=== PATIENT | female | born 1985 ===

== ENCOUNTER 2017-09-05 09:46 | Emergency (ER) | payer OTHER ==
[2017-09-05 09:53] VITALS: BP 145/79; PULSE 80; RESP 20; TEMP 98.2; O2SAT 100
--- NOTE | 2017-09-05 10:14 | C.PDOC ---
History Of Present Illness Pt c/o rash. Time Seen by Provider: 09/05/17 09:59 Chief Complaint (Nursing): Abnormal Skin Integrity History Per: Patient Onset/Duration Of Symptoms: Days (4) Current Symptoms Are (Timing): Still Present Location Of Injury: Right: Arm, Left: Arm, Anterior: Abdomen (lower) Quality Of Symptoms: Itching. denies: Draining Severity: Moderate Additional History Per: Prior Records Past Medical History Reviewed: Historical Data, Nursing Documentation, Vital Signs Vital Signs: Last Vital Signs Temp 98.2 F 09/05/17 09:51 Pulse 80 09/05/17 09:51 Resp 20 09/05/17 09:51 BP 145/79 09/05/17 09:51 Pulse Ox 100 09/05/17 09:51 - Medical History PMH: Diabetes (Gestational) - [facility] Procedures MONITORING NOS (10/01/12) REPAIR OB LACERATION NEC (10/03/12) SURG INDUCT LABOR NEC (10/03/12) Family History: States: Unknown Family Hx - Social History Hx Alcohol Use: No Hx Substance Use: No Review Of Systems Except As Marked, All Systems Reviewed And Found Negative. Constitutional: Negative for: Fever, Weakness ENT: Negative for: Mouth Pain, Mouth Swelling, Throat Pain, Throat Swelling Respiratory: Negative for: Shortness of Breath Gastrointestinal: Negative for: Vomiting Musculoskeletal: Negative for: Neck Pain Skin: Positive for: Rash Neurological: Negative for: Weakness, Numbness Physical Exam - Physical Exam Appears: Non-toxic, No Acute Distress Skin: Warm, Dry, Rash (erythematous patches on b/l upper arms and lower abdomen. ) Head: Atraumatic, Normacephalic Eye(s): bilateral: Normal Inspection, PERRL, EOMI Oral Mucosa: Moist, No Drooling, No Trismus Throat: Normal Neck: Normal ROM, Supple Lymphatic: No Adenopathy Cardiovascular: Rhythm Regular Respiratory: Normal Breath Sounds, No Accessory Muscle Use Gastrointestinal/Abdominal: Soft, No Tenderness Back: No CVA Tenderness Extremity: Normal ROM, No Pedal Edema, No Calf Tenderness, Other (No rash on palms or soles) Neurological/Psych: Oriented x3, Normal Speech, Normal Motor, Normal Sensation ED Course And Treatment O2 Sat by Pulse Oximetry: 100 Pulse Ox Interpretation: Normal Disposition Counseled Patient/Family Regarding: Diagnosis, Need For Followup, Rx Given - Disposition Referrals: at [facility] [Outside] Disposition: HOME/ ROUTINE Disposition Time: 10:14 Condition: STABLE Additional Instructions: Follow up in the clinic. Return to the ER if you develop fever, shortness of breath, mouth sores, throat swelling, worsening of symptoms or if you have any other concerns. Prescriptions: DiphenhydrAMINE [Benadryl] 25 mg PO Q4 PRN #30 cap PRN Reason: Allergy Symptoms Hydrocortisone 1% Cream [Cortizone 1% Cream] 1 appl TP BID #1 tube Instructions: Skin Rash (DC) Print Language: STATELESS - Clinical Impression Clinical Impression: Pruritic erythematous rash
== END 2017-09-05 10:28 | disposition home or self-care (01) ==
LOC: C.ER 09:46
DX: L53.9 Erythematous condition, unspecified (principal); R21 Rash and other nonspecific skin eruption

== ENCOUNTER 2017-11-26 12:48 | Emergency (ER) | payer OTHER ==
[2017-11-26 12:56] VITALS: TEMP 98.5
[2017-11-26 13:59] VITALS: BP 119/85; PULSE 73; RESP 16; O2SAT 98
--- NOTE | 2017-11-26 15:59 | C.PDOC ---
History Of Present Illness 32 year old female patient presents to the ER with c/o bilateral lower extremity pain below the knee. Patient states pain has been going on for more than a month. Patient notes she took and Advil x1 week ago which provided relief. Patient is able to ambulate. Patient denies leg numbness and recent trauma. Time Seen by Provider: 11/26/17 12:59 Chief Complaint (Nursing): Lower Extremity Problem/Injury History Per: Patient History/Exam Limitations: no limitations Onset/Duration Of Symptoms: Days (x1 month) Current Symptoms Are (Timing): Still Present Past Medical History Reviewed: Historical Data, Nursing Documentation, Vital Signs Vital Signs: Last Vital Signs Temp 98.5 F 11/26/17 12:55 Pulse 73 11/26/17 13:58 Resp 16 11/26/17 13:58 BP 119/85 11/26/17 13:58 Pulse Ox 98 11/26/17 16:07 - Medical History PMH: Diabetes (Gestational) - [facility] Procedures MONITORING NOS (10/01/12) REPAIR OB LACERATION NEC (10/03/12) SURG INDUCT LABOR NEC (10/03/12) Family History: States: Unknown Family Hx - Social History Hx Alcohol Use: No Hx Substance Use: No - Immunization History Hx Tetanus Toxoid Vaccination: No Hx Influenza Vaccination: No Hx Pneumococcal Vaccination: No Review Of Systems Except As Marked, All Systems Reviewed And Found Negative. Musculoskeletal: Positive for: Other (Bilateral lower extremity pain below the knee) Neurological: Negative for: Numbness (leg) Physical Exam - Physical Exam Appears: Well, Non-toxic, No Acute Distress Skin: Normal Color, Warm, Dry Head: Atraumatic, Normacephalic Neck: Normal ROM, Supple Chest: Symmetrical, No Deformity Cardiovascular: Rhythm Regular Respiratory: Normal Breath Sounds Extremity: Normal ROM (x4), No Tenderness, No Pedal Edema, No Calf Tenderness, Capillary Refill (<2 sec), No Deformity, No Swelling Extremity: Bilateral: Atraumatic Pulses: Left Dorsalis Pedis: Normal, Right Dorsalis Pedis: Normal Neurological/Psych: Oriented x3, Normal Speech, Normal Motor, Normal Sensation, Normal Reflexes Gait: Steady ED Course And Treatment O2 Sat by Pulse Oximetry: 98 (RA) Pulse Ox Interpretation: Normal Medical Decision Making Medical Decision Making: Impression: bilateral lower extremity pain below knee Plans: -- ibuprofen Reassess: Patient is resting comfortably. Tolerating PO. Patient states she feels better and is comfortable being discharged home. Patient is advised to f/ u with PCP in 1-2 days. Disposition - Disposition Referrals: [facility] [Outside] [facility] [Outside] Disposition: HOME/ ROUTINE Disposition Time: 13:30 Condition: GOOD Additional Instructions: SYLVESTER TIRADO, thank you for letting us take care of you today. Your provider was Mejia Gallardo DO and you were treated for LEG PAIN. The emergency medical care you received today was directed at your acute symptoms. If you were prescribed any medication, please fill it and take as directed. It may take several days for your symptoms to resolve. Return to the Emergency Department if your symptoms worsen, do not improve, or if you have any other problems. Please contact your doctor or call one of the physicians/clinics you have been referred to that are listed on the Patient Visit Information form that is included in your discharge packet. Bring any paperwork you were given at discharge with you along with any medications you are taking to your follow up visit. Our treatment cannot replace ongoing medical care by a primary care provider outside of the emergency department. Thank you for allowing the [facility] team to be part of your care today. Follow up with the clinic this week for outpatient care. SYLVESTER TIRADO, ary por dejarnos atenderlo hoy. Benoit proveedor fue Mejia Gallardo DO y usted recibi tratamiento para LEG DOLOR. La atencin mdica de emergencia que recibi hoy estaba dirigida a emiliana sntomas agudos. Si le prescribieron algn medicamento, llnelo y tome segn las indicaciones. Emiliana s ntomas pueden tardar varios gonzales en resolverse. Regrese al Departamento de Emergencia si emiliana sntomas empeoran, no mejoran o si tiene algn otro problema. Comunquese con benoit mdico o llame a pam de los mdicos / clnicas a los que llanos sido referido que figura en el formulario de Informacin de visita del paciente que se incluye en benoit paquete de stephen. Traiga todos los documentos que recibi al momento del stephen junto con los medicamentos que est tomando en benoit visita de seguimiento. Nuestro tratamiento no puede reemplazar la atencin mdica en curso por un proveedor de atencin primaria fuera del departamento de emergencia. Ary por permitir que el equipo de [facility] sea parte de benoit cuidado hoy. Azra un seguimiento con la clnica esta semana para atencin ambulatoria. Prescriptions: Ibuprofen [Motrin] 600 mg PO Q6 PRN #20 tab PRN Reason: Pain, Moderate (4-7) Instructions: Muscle and Bone Pain (DC) Forms: Gen Discharge Inst Bolivian, [facility] (Bolivian) Print Language: TURKISH - Clinical Impression Clinical Impression: Musculoskeletal pain - Scribe Statement The provider has reviewed the documentation as recorded by the Scribe Geovanna Do Provider Attestation: All medical record entries made by the Scribe were at my direction and personally dictated by me. I have reviewed the chart and agree that the record accurately reflects my personal performance of the history, physical exam, medical decision making, and the department course for this patient. I have also personally directed, reviewed, and agree with the discharge instructions and disposition.
== END 2017-11-26 13:58 | disposition home or self-care (01) ==
LOC: C.ER 12:48
DX: M79.1 Myalgia (principal)